=== PATIENT | female | born 2000 ===

== ENCOUNTER 2022-05-10 21:29 | Emergency (ER) | payer BC, OTHER ==
[2022-05-10] MEDS ORDERED: Diphtheria,Pertussis(Acell),Tetanus Vaccine 0.5 ML Syringe IM ONE (21:54)
== END 2022-05-10 23:13 | disposition home or self-care (01) ==
LOC: MW.ED 21:29
DX: S91.312A Laceration without foreign body, left foot, initial encounter (principal); Z23 Encounter for immunization
CPT/HCPCS: 12001; 73630-26-LT; 73630-LT; 90471; 90715; 99283-25

== ENCOUNTER 2023-11-27 10:12 | Inpatient (IN) | payer BC ==
[2023-11-27] MEDS ORDERED: Terbutaline 1 MG/ML SDV SUBCUT PRN (13:16)
[2023-11-27] MEDS ORDERED: Sodium Chloride 0.9% 10 ML Syringe FLUSH PRN (13:16)
[2023-11-27] MEDS ORDERED: Tranexamic Acid IN NACL,ISO-OS 1,000 MG in Premix Bag 1 BAG IV PRN (13:16)
[2023-11-27] MEDS ORDERED: Lidocaine 1% 50 ML MDV INJECT PRN (13:16)
[2023-11-27] MEDS ORDERED: Misoprostol 200 MCG Tab PO PRN (13:16)
[2023-11-27] MEDS ORDERED: Misoprostol 25 MCG (1/4 of 100 MCG) Tab VAG PRN ×2 (13:16)
[2023-11-27] MEDS ORDERED: Methylergonovine 0.2 MG/1 ML Amp IM PRN (13:16)
[2023-11-27] MEDS ORDERED: Water For Irrigation,Sterile 1,000 ML Container IRR PRN (13:16)
[2023-11-27] MEDS ORDERED: Sodium Chloride 0.9% 20 ML SDV IV PRN (13:16)
[2023-11-27] MEDS ORDERED: Sodium Chloride 0.9% 2.5 ML Syringe FLUSH PRN (13:16)
[2023-11-27] MEDS ORDERED: Carboprost Tromethamine 250 MCG/1 mL Vial IM PRN (13:16)
[2023-11-27] MEDS ORDERED: Butorphanol 2 MG/ML SDV IVPUSH PRN (13:16)
[2023-11-27] MEDS: Lactated Ringers 1,000 ML IV SCH (13:24)
[2023-11-27 13:27] LABS: HEMATOCRIT 33.6 % (37.0-47.0); HEMOGLOBIN 10.6 g/dL (12.0-16.0); MEAN CORPUSCULAR HEMOGLOBIN 22.6 pg (28.0-32.0); MEAN CORPUSCULAR HGB CONC 31.5 g/dL (32.0-36.0); MEAN CORPUSCULAR VOLUME 71.6 fL (83.0-99.0); MEAN PLATELET VOLUME 10.8 fL (9.4-12.3); PLATELET COUNT,PLT 285 K/uL (150-400); RED BLOOD CELL COUNT 4.69 M/uL (4.10-5.30); WHITE BLOOD CELL COUNT,WBC 12.54 K/uL (3.9-11.3)
[2023-11-27] MEDS ORDERED: Oxytocin/0.9 % Sodium Chloride 30 UNIT/500 ML BAG IV SCH (13:30)
[2023-11-27] MEDS: Oxytocin/0.9 % Sodium Chloride 30 UNIT/500 ML BAG IV SCH (14:24)
[2023-11-27] MEDS ORDERED: Phenylephrine HCl 0.5 MG/5 ML AMP ONE (16:25)
[2023-11-27] MEDS ORDERED: Ropivacaine HCl/PF 200 ML ONE (16:25)
[2023-11-27] MEDS ORDERED: Bupivacaine 0.5% 10 ML SDV ONE (16:25)
[2023-11-27] MEDS: Ropivacaine HCl/PF 400 MG in Premix Bag 1 BAG EPIDUR SCH (16:40)
[2023-11-27] MEDS ORDERED: ePHEDrine 50 MG/ML SDV IVPUSH PRN ×2 (16:50)
[2023-11-27] MEDS: Phenylephrine HCl 0.5 MG/5 ML AMP IVPUSH PRN (17:38)
[2023-11-27] MEDS ORDERED: Docusate Sodium 100 MG Cap PO PRN (20:46)
[2023-11-27] MEDS ORDERED: oxyCODONE 5 MG Tab PO PRN (20:46)
[2023-11-27 21:26] LABS: PH,UMBILICAL ARTERIAL 7.166 (7.18-7.38); PH,UMBILICAL VENOUS 7.26 (7.25-7.45)
[2023-11-27] MEDS: Benzocaine/Menthol 20%-0.5% Spray 78 GM Cannister TOP PRN (22:14)
[2023-11-27] MEDS: Witch Hazel Medicated Pads 40/Jar TOP PRN (22:14)
[2023-11-27] MEDS: Lanolin 100% Cream 7 GM Tube TOP PRN (22:15)
[2023-11-28] MEDS: Acetaminophen 500 MG Tab PO PRN (00:07)
[2023-11-28 06:22] LABS: HEMATOCRIT 31.9 % (37.0-47.0)
[2023-11-28] MEDS: Ibuprofen 800 MG Tab PO PRN (17:31)
== END 2023-11-28 22:15 | disposition home or self-care (01) | DRG 560 ==
LOC: MW.OBCHECK 10:12 → MW.OB 10:14 → MW.OBCHECK 13:16 → MW.OB 13:16 → OBSVTOIN 20:29 → MW.OB 23:00
PROVIDERS: ADMIT Obstetrics & Gynecology; ATTEND Obstetrics & Gynecology
PROC: 10E0XZZ Delivery of Products of Conception, External Approach (ICD-10-PCS; principal; 2023-11-27)
PROC: 0KQM0ZZ Repair Perineum Muscle, Open Approach (ICD-10-PCS; 2023-11-27)
PROC: 3E0R3BZ Introduction of Anesthetic Agent into Spinal Canal, Percutaneous Approach (ICD-10-PCS; 2023-11-27)
PROC: 00HU33Z Insertion of Infusion Device into Spinal Canal, Percutaneous Approach (ICD-10-PCS; 2023-11-27)
DX: O42.02 Full-term premature rupture of membranes, onset of labor within 24 hours of rupture (principal); Z37.0 Single live birth; O70.1 Second degree perineal laceration during delivery; Z3A.38 38 weeks gestation of pregnancy
CPT/HCPCS: 36415; 51702; 59409; 82803; 84112; 85014; 85018; 85027; 86592; 86850; 86900; 86901; A9270-GY; J0665; J2371; J2590; J2795; J7120